=== PATIENT | male | born 1950 | race Caucasian/White ===

== ENCOUNTER 2018-08-04 19:26 | Inpatient (IN) | payer MEDICARE, MEDICAID ==
[~2018-08-04] VITALS: Ht 215.9 cm; Wt 67.1 kg
[~2018-08-04 19:26] MED LIST: ALBUTEROL PO; FLUT1DIS IH; P20 PO; PRO AIR INHALER INH; THEO80EL3 PO; TIOT18CA3 IH
[2018-08-04] MEDS ORDERED: IPRATROPIUM BROMIDE (0.02%) 0.5MG/2.5ML NEB HHN STA (20:10)
[2018-08-04] MEDS ORDERED: METHYLPREDNISOLONE SOD SUCC 125 MG/2 ML VIAL IV STA (20:10)
[2018-08-04] MEDS ORDERED: SODIUM CHLORIDE 0.9% 1,000 ML IV ONE (20:10)
[2018-08-04] MEDS ORDERED: MAGNESIUM 2 G PREMIX 50 ML IV ONE (20:15)
[2018-08-04] MEDS: ALBUTEROL (0.083%) 2.5MG/3ML NEB HHN SCH ×3 (20:30→21:50)
[2018-08-04 20:44] LABS: HEMATOCRIT. 49.8 % (42.0-52.0); HEMOGLOBIN. 16.8 g/dL (14.0-18.0); MEAN CORPUSCULAR HEMOGLOBIN 29.7 pg (28.0-32.0); MEAN CORPUSCULAR VOLUME 88.4 fL (80.0-94.0); MEAN PLATELET VOLUME 7.9 fl (7.4-10.4); PLATELET 312 x1000/uL (130-400); RED BLOOD CELL COUNT 5.64 mill/uL (4.7-6.1)
[2018-08-04 20:47] LABS: CHLORIDE 100 mEq/L (98-107)
[2018-08-04 20:48] LABS: PROTHROMBIN TIME 9.8 sec (9.6-11.0)
[2018-08-04 21:12] LABS: PLATELET ESTIMATE NORMAL
[2018-08-04] MEDS ORDERED: ONDANSETRON HCL 4MG/2ML INJ IV PRN (22:15)
[2018-08-04] MEDS ORDERED: MAGNESIUM HYDROXIDE 400MG/5ML 30ML UDC PO PRN (22:15)
[2018-08-04] MEDS ORDERED: IPRATROPIUM/ALBUTEROL 0.5-3(2.5)MG/3ML NEB INH PRN (22:15)
[2018-08-04] MEDS ORDERED: TEMAZEPAM 15MG CAPSULE PO PRN (22:15)
[2018-08-04] MEDS ORDERED: MVI, ADULT NO.1 10 ML, FOLIC ACID 1 MG, THIAMINE HCL 100 MG in SODIUM CHLORIDE 0.9% 1,0... IV NR ×4 (22:15)
[2018-08-04] MEDS ORDERED: ACETAMINOPHEN 325MG TABLET PO PRN (22:15)
[2018-08-04] MEDS ORDERED: DIPHENHYDRAMINE 50MG/ML VIAL IV PRN (22:15)
[2018-08-04] MEDS ORDERED: LORAZEPAM 0.5MG TABLET PO PRN (22:15)
[2018-08-04] MEDS ORDERED: CLONIDINE 0.1MG TABLET PO PRN (22:15)
[2018-08-04] MEDS ORDERED: MAGNESIUM/ALUMINUM HYDROXIDE/SIMETHICONE 30ML UDC PO PRN (22:15)
[2018-08-04] MEDS ORDERED: GUAIFENESIN 200MG/10ML SUGAR FREE UDC PO PRN (22:15)
[2018-08-05] VITALS (7 sets, daily range): BP systolic 113–136; BP diastolic 57–86
[2018-08-05] MEDS: METHYLPREDNISOLONE SOD SUCC 125 MG/2 ML VIAL IV SCH ×2 (05:27→14:26)
[2018-08-05] MEDS: IPRATROPIUM/ALBUTEROL 0.5-3(2.5)MG/3ML NEB HHN SCH ×3 (08:51→20:41)
[2018-08-05] MEDS ORDERED: FAMOTIDINE 20MG TABLET PO SCH (09:00)
[2018-08-05] MEDS: GUAIFENESIN 600MG ER TABLET PO SCH ×2 (09:15→21:12)
[2018-08-05] MEDS: ENOXAPARIN 40MG/0.4ML SYR SUBCUT SCH (09:16)
[2018-08-05] MEDS: OMEPRAZOLE 20MG CAPSULE EXTENDED RELEASE PO SCH (13:26)
[2018-08-05] MEDS: METHYLPREDNISOLONE SOD SUCC 40 MG/ML VIAL IV SCH (21:12)
[2018-08-06] VITALS: BP 112/62
[2018-08-06] MEDS ORDERED: BUDESONIDE 0.5MG/2ML NEB HHN SCH
[2018-08-06] MEDS: IPRATROPIUM/ALBUTEROL 0.5-3(2.5)MG/3ML NEB HHN SCH ×3 (02:21→14:28)
[2018-08-06 04:00] VITALS: BP 103/64
[2018-08-06] MEDS: OMEPRAZOLE 20MG CAPSULE EXTENDED RELEASE PO SCH (06:01)
[2018-08-06] MEDS: METHYLPREDNISOLONE SOD SUCC 40 MG/ML VIAL IV SCH ×2 (06:04→14:12)
[2018-08-06] MEDS: THEOPHYLLINE ANHYDROUS 80 MG/15 ML 120ML PO SCH ×2 (06:05→12:38)
[2018-08-06 08:18] VITALS: BP 113/62
[2018-08-06] MEDS: ENOXAPARIN 40MG/0.4ML SYR SUBCUT SCH (08:18)
[2018-08-06] MEDS: GUAIFENESIN 600MG ER TABLET PO SCH (08:18)
[2018-08-06 12:00] VITALS: BP 123/64
[2018-08-06 15:05] VITALS: BP 123/64
[2018-08-06 16:00] VITALS: BP 124/58
[2018-08-07] MEDS ORDERED: FAMOTIDINE 20MG TABLET PO SCH (09:00)
== END 2018-08-06 18:04 | disposition home or self-care (01) | DRG 189 ==
LOC: ER 19:26 → 5WST 22:01 → EDBEDREQ 22:04 → EDBEDREQTM 22:04 → ENRESERV 22:45
PROVIDERS: ADMIT Internal Medicine; ATTEND Internal Medicine
DX: J96.00 Acute respiratory failure, unspecified whether with hypoxia or hypercapnia (principal); J44.1 Chronic obstructive pulmonary disease with (acute) exacerbation; K21.9 Gastro-esophageal reflux disease without esophagitis; E87.5 Hyperkalemia; Z99.81 Dependence on supplemental oxygen; Z87.891 Personal history of nicotine dependence; Z91.5 Personal history of self-harm; Z79.899 Other long term (current) drug therapy
CPT/HCPCS: 36415; 71045; 83605; 83880; 84484; 93005; 93970; 94640; 96365; 96375; 99291; J1650; J2920; J2930; J3411; J3475; J3490; J7030; J7611; J7620; J7626

== ENCOUNTER 2018-10-15 10:22 | Inpatient (IN) | payer MEDICAID, MEDICARE ==
[~2018-10-15] VITALS: Ht 172.7 cm; Wt 63.5 kg
[2018-10-15] MEDS ORDERED: METHYLPREDNISOLONE SOD SUCC 125 MG/2 ML VIAL IV STA (10:29)
[2018-10-15] MEDS ORDERED: IPRATROPIUM BROMIDE (0.02%) 0.5MG/2.5ML NEB HHN STA ×2 (10:29)
[2018-10-15 10:47] LABS: BASOPHILS % 0.7 % (0.0-2.0); EOSINOPHILS % 0.3 % (0.0-5.0); HEMATOCRIT. 45.6 % (42.0-52.0); HEMOGLOBIN. 15.5 g/dL (14.0-18.0); LYMPHOCYTES % 12.3 % (20.0-50.0); MEAN CORPUSCULAR HEMOGLOBIN 29.6 pg (28.0-32.0); MEAN CORPUSCULAR VOLUME 87.3 fL (80.0-94.0); MEAN PLATELET VOLUME 8.2 fl (7.4-10.4); MONOCYTES % 7.2 % (2.0-8.0); NEUTROPHILS % 79.5 % (40.0-76.0); PLATELET 291 x1000/uL (130-400); RED BLOOD CELL COUNT 5.23 mill/uL (4.7-6.1); RED CELL DISTRIBUTION WIDTH 16.1 % (11.6-14.6)
[2018-10-15 10:54] LABS: CHLORIDE 97 mEq/L (98-107)
[2018-10-15 10:55] LABS: PROTHROMBIN TIME 10.5 sec (9.6-11.0)
[2018-10-15] MEDS ORDERED: FUROSEMIDE 20MG/2ML VIAL IVP ONE (11:15)
[2018-10-15 11:27] LABS: BG BASE EXCESS 3.3 mmol/L (-2.0-2.0); BG BILEVEL POS AIRWAY PRESSURE 15/5; BG CARBOXYHEMOGLOBIN 0.5 % (0.5-1.5); BG DEOXYHEMOGLOBIN 0.3 % (0.0-5.0); BG FRACTION INSPIRED OXYGEN 100; BG HCO3 ACT 27.7 mmol/L (22.0-26.0); BG METHEMOGLOBIN 0.4 % (0.0-1.5); BG OXYGEN SATURATION 99.7 % (92.0-98.5); BG OXYHEMOGLOBIN 98.8 % (94.0-97.0); BG PCO2 41.5 mmHg (35.0-45.0); BG PH 7.443 (7.350-7.450); BG PO2 565.8 mmHg (75.0-100.0); BG SAMPLE SITE RIGHT RADIAL; BG TOTAL HEMOGLOBIN 15.1 g/dL (12.0-18.0); BG VENT MODE MASK - BIPAP; BG VENT RATE 16 set
[2018-10-15] MEDS ORDERED: LEVOFLOXACIN 500MG PREMIX 100 ML IV ONE (11:30)
[2018-10-15 11:54] LABS: CLARITY URINE CLOUDY (CLEAR); COLOR URINE YELLOW (YELLOW); KETONES URINE 1+ (NEGATIVE); LEUKOCYTE ESTERASE URINE TRACE (NEGATIVE); NITRITE URINE NEGATIVE (NEGATIVE); OCCULT BLOOD URINE TRACE (NEGATIVE); PROTEIN URINE 1+ (NEGATIVE); UROBILINOGEN URINE 0.2 E.U./dL (0.2-1.0)
[2018-10-15] MEDS ORDERED: LORAZEPAM 2MG/ML CPJ IV PRN (12:15)
[2018-10-15] MEDS ORDERED: ONDANSETRON HCL 4MG/2ML INJ IV PRN (12:15)
[2018-10-15] MEDS ORDERED: HYDROCODONE/ACETAMINOPHEN 5/325MG TABLET PO PRN (12:15)
[2018-10-15] MEDS ORDERED: PIPERACILLIN/TAZ 3.375G PREMIX 50 ML IV SCH (12:15)
[2018-10-15] MEDS ORDERED: CLONIDINE 0.1MG TABLET PO PRN (12:15)
[2018-10-15] MEDS ORDERED: HYDROMORPHONE HCL/PF 2MG/ML CPJ IV PRN (12:15)
[2018-10-15] MEDS ORDERED: MAGNESIUM/ALUMINUM HYDROXIDE/SIMETHICONE 30ML UDC PO PRN (12:15)
[2018-10-15 13:30] LABS: CHLORIDE 97 mEq/L (98-107)
[2018-10-15] MEDS: POTASSIUM CHLORIDE 20MEQ TABLET SR PO SCH ×2 (14:45→16:26)
[2018-10-15 16:00] VITALS: BP_SYST 127; BP_SYST 130; BP_DIAS 76; BP_DIAS 89
[2018-10-15] MEDS ORDERED: NA PHOS,M-B/NA PHOS,DI-BA ENEMA 118ML PR PRN (16:00)
[2018-10-15] MEDS: PANTOPRAZOLE SODIUM 40 MG/VIAL IV SCH (16:26)
[2018-10-15] MEDS: ENOXAPARIN 40MG/0.4ML SYR SUBCUT SCH (16:27)
[2018-10-15 17:02] VITALS: BP 131/32
[2018-10-15 18:00] VITALS: BP 153/88
[2018-10-15] MEDS: PIPERACILLIN/TAZOBACTAM 3.375 G in DEXT 5% WATER 100 ML IV SCH (18:00)
[2018-10-15] MEDS: METHYLPREDNISOLONE SOD SUCC 125 MG/2 ML VIAL IV SCH (18:00)
[2018-10-15 20:00] VITALS: BP 148/96
[2018-10-15] MEDS: DILTIAZEM HCL 30MG TABLET PO SCH (21:25)
[2018-10-15 22:00] VITALS: BP 142/96
[2018-10-15] MEDS: HALOPERIDOL LACTATE 5MG/ML VIAL IM PRN (22:25)
[2018-10-16] VITALS (11 sets, daily range): BP systolic 105–182; BP diastolic 18–109
[2018-10-16] MEDS: METHYLPREDNISOLONE SOD SUCC 125 MG/2 ML VIAL IV SCH ×3 (05:37→11:12)
[2018-10-16] MEDS: PIPERACILLIN/TAZOBACTAM 3.375 G in DEXT 5% WATER 100 ML IV SCH ×5 (05:37→17:46)
[2018-10-16] MEDS: DILTIAZEM HCL 30MG TABLET PO SCH ×3 (05:37→22:00)
[2018-10-16] MEDS: PANTOPRAZOLE SODIUM 40 MG/VIAL IV SCH (09:00)
[2018-10-16] MEDS: FUROSEMIDE 40MG/4ML VIAL IV SCH (09:00)
[2018-10-16] MEDS: ASPIRIN 81MG EC TABLET PO SCH (09:00)
[2018-10-16] MEDS: HALOPERIDOL LACTATE 5MG/ML VIAL IM PRN ×2 (15:32→22:37)
[2018-10-16] MEDS: METHYLPREDNISOLONE SOD SUCC 40 MG/ML VIAL IV SCH (16:00)
[2018-10-16] MEDS: ENOXAPARIN 40MG/0.4ML SYR SUBCUT SCH (16:30)
[2018-10-16] MEDS: QUETIAPINE FUMARATE 25MG TABLET PO SCH (21:00)
[2018-10-17] VITALS (12 sets, daily range): BP systolic 101–168; BP diastolic 50–90
[2018-10-17] MEDS: PIPERACILLIN/TAZOBACTAM 3.375 G in DEXT 5% WATER 100 ML IV SCH ×6 (05:40→23:14)
[2018-10-17] MEDS: DILTIAZEM HCL 30MG TABLET PO SCH ×3 (05:45→21:41)
[2018-10-17 06:54] LABS: HEMATOCRIT. 43.9 % (42.0-52.0); HEMOGLOBIN. 14.4 g/dL (14.0-18.0); MEAN PLATELET VOLUME 8.5 fl (7.4-10.4); PLATELET 199 x1000/uL (130-400); RED BLOOD CELL COUNT 4.99 mill/uL (4.7-6.1); RED CELL DISTRIBUTION WIDTH 16.2 % (11.6-14.6)
[2018-10-17 07:16] LABS: CHLORIDE 100 mEq/L (98-107)
[2018-10-17] MEDS: METHYLPREDNISOLONE SOD SUCC 40 MG/ML VIAL IV SCH ×3 (08:12→21:13)
[2018-10-17] MEDS: FUROSEMIDE 40MG/4ML VIAL IV SCH (08:12)
[2018-10-17] MEDS: MORPHINE SULFATE 2 MG/ML CPJ (NOT FOR IM USE) IV PRN ×2 (08:12→21:13)
[2018-10-17] MEDS: PANTOPRAZOLE SODIUM 40 MG/VIAL IV SCH (08:12)
[2018-10-17] MEDS: ASPIRIN 81MG EC TABLET PO SCH (08:13)
[2018-10-17] MEDS: QUETIAPINE FUMARATE 25MG TABLET PO SCH ×2 (08:13→21:14)
[2018-10-17] MEDS ORDERED: METHYLPREDNISOLONE SOD SUCC 40 MG/ML VIAL IV SCH (13:00)
[2018-10-17 14:05] LABS: PLATELET ESTIMATE NORMAL
[2018-10-17] MEDS: ENOXAPARIN 40MG/0.4ML SYR SUBCUT SCH (17:19)
[2018-10-18] VITALS (12 sets, daily range): BP systolic 108–135; BP diastolic 56–74
[2018-10-18] MEDS: PIPERACILLIN/TAZOBACTAM 3.375 G in DEXT 5% WATER 100 ML IV SCH ×4 (05:27→23:33)
[2018-10-18] MEDS: DILTIAZEM HCL 30MG TABLET PO SCH ×3 (05:32→21:15)
[2018-10-18 06:48] LABS: HEMATOCRIT. 43.1 % (42.0-52.0); HEMOGLOBIN. 14.8 g/dL (14.0-18.0); MEAN CORPUSCULAR HEMOGLOBIN 29.9 pg (28.0-32.0); MEAN CORPUSCULAR VOLUME 86.7 fL (80.0-94.0); MEAN PLATELET VOLUME 8.3 fl (7.4-10.4); PLATELET 203 x1000/uL (130-400); RED BLOOD CELL COUNT 4.96 mill/uL (4.7-6.1); RED CELL DISTRIBUTION WIDTH 16.4 % (11.6-14.6)
[2018-10-18 06:56] LABS: CHLORIDE 96 mEq/L (98-107)
[2018-10-18] MEDS: METHYLPREDNISOLONE SOD SUCC 40 MG/ML VIAL IV SCH (08:32)
[2018-10-18] MEDS: QUETIAPINE FUMARATE 25MG TABLET PO SCH ×2 (08:33→21:14)
[2018-10-18] MEDS: FAMOTIDINE 20MG/2ML VIAL IV SCH ×2 (08:33→21:14)
[2018-10-18] MEDS: ASPIRIN 81MG EC TABLET PO SCH (08:33)
[2018-10-18] MEDS ORDERED: POTASSIUM CHLORIDE 20MEQ/PACKET PO NR (09:15)
[2018-10-18] MEDS: ACETAMINOPHEN 325MG TABLET PO PRN (15:55)
[2018-10-18] MEDS: ENOXAPARIN 40MG/0.4ML SYR SUBCUT SCH (15:57)
[2018-10-18] MEDS: IPRATROPIUM/ALBUTEROL 0.5-3(2.5)MG/3ML NEB NEB PRN (18:01)
[2018-10-18 21:09] LABS: PLATELET ESTIMATE NORMAL
[2018-10-18] MEDS: MORPHINE SULFATE 2 MG/ML CPJ (NOT FOR IM USE) IV PRN (21:16)
[2018-10-19] VITALS (12 sets, daily range): BP systolic 113–144; BP diastolic 51–85
[2018-10-19] MEDS: IPRATROPIUM/ALBUTEROL 0.5-3(2.5)MG/3ML NEB NEB PRN (00:19)
[2018-10-19] MEDS: PIPERACILLIN/TAZOBACTAM 3.375 G in DEXT 5% WATER 100 ML IV SCH ×3 (05:23→17:40)
[2018-10-19] MEDS: DILTIAZEM HCL 30MG TABLET PO SCH ×3 (05:25→21:09)
[2018-10-19] MEDS: MORPHINE SULFATE 2 MG/ML CPJ (NOT FOR IM USE) IV PRN (05:26)
[2018-10-19] MEDS: FAMOTIDINE 20MG/2ML VIAL IV SCH ×2 (09:14→21:08)
[2018-10-19] MEDS: PREDNISONE 20MG TABLET PO SCH (09:14)
[2018-10-19] MEDS: QUETIAPINE FUMARATE 25MG TABLET PO SCH ×2 (09:14→21:09)
[2018-10-19] MEDS: ASPIRIN 81MG EC TABLET PO SCH (09:14)
[2018-10-19 13:14] LABS: CHLORIDE 95 mEq/L (98-107)
[2018-10-19] MEDS: ENOXAPARIN 40MG/0.4ML SYR SUBCUT SCH (16:28)
[2018-10-20] VITALS (12 sets, daily range): BP systolic 63–136; BP diastolic 21–85
[2018-10-20] MEDS: PIPERACILLIN/TAZOBACTAM 3.375 G in DEXT 5% WATER 100 ML IV SCH ×5 (00:32→23:33)
[2018-10-20] MEDS: DILTIAZEM HCL 30MG TABLET PO SCH ×3 (06:18→21:47)
[2018-10-20 07:34] LABS: HEMATOCRIT. 43.6 % (42.0-52.0); HEMOGLOBIN. 14.9 g/dL (14.0-18.0); MEAN CORPUSCULAR HEMOGLOBIN 29.7 pg (28.0-32.0); MEAN CORPUSCULAR VOLUME 86.6 fL (80.0-94.0); MEAN PLATELET VOLUME 8.3 fl (7.4-10.4); PLATELET 190 x1000/uL (130-400); RED BLOOD CELL COUNT 5.04 mill/uL (4.7-6.1); RED CELL DISTRIBUTION WIDTH 15.6 % (11.6-14.6)
[2018-10-20 07:45] LABS: CHLORIDE 93 mEq/L (98-107)
[2018-10-20] MEDS: PREDNISONE 20MG TABLET PO SCH (08:34)
[2018-10-20] MEDS: FAMOTIDINE 20MG/2ML VIAL IV SCH ×2 (08:34→21:47)
[2018-10-20] MEDS: ASPIRIN 81MG EC TABLET PO SCH (08:34)
[2018-10-20] MEDS: QUETIAPINE FUMARATE 25MG TABLET PO SCH ×2 (08:34→21:47)
[2018-10-20] MEDS: ENOXAPARIN 40MG/0.4ML SYR SUBCUT SCH (17:43)
[2018-10-20 18:43] LABS: PLATELET ESTIMATE NORMAL
[2018-10-20] MEDS: GUAIFENESIN 200MG/10ML SUGAR FREE UDC PO PRN (19:57)
[2018-10-21] VITALS (12 sets, daily range): BP systolic 114–146; BP diastolic 55–79
[2018-10-21] MEDS: ACETAMINOPHEN 325MG TABLET PO PRN (02:33)
[2018-10-21] MEDS: DOCUSATE SODIUM 100MG CAPSULE PO PRN ×2 (05:24→08:30)
[2018-10-21] MEDS: PIPERACILLIN/TAZOBACTAM 3.375 G in DEXT 5% WATER 100 ML IV SCH ×3 (05:24→17:26)
[2018-10-21] MEDS: DILTIAZEM HCL 30MG TABLET PO SCH ×3 (05:26→20:58)
[2018-10-21] MEDS: ASPIRIN 81MG EC TABLET PO SCH (08:29)
[2018-10-21] MEDS: QUETIAPINE FUMARATE 25MG TABLET PO SCH ×2 (08:29→20:56)
[2018-10-21] MEDS: FAMOTIDINE 20MG/2ML VIAL IV SCH ×2 (08:29→20:56)
[2018-10-21] MEDS: PREDNISONE 20MG TABLET PO SCH (08:29)
[2018-10-21] MEDS: IPRATROPIUM/ALBUTEROL 0.5-3(2.5)MG/3ML NEB NEB PRN (09:38)
[2018-10-21] MEDS: GUAIFENESIN 200MG/10ML SUGAR FREE UDC PO PRN ×2 (12:55→19:19)
[2018-10-21] MEDS ORDERED: LACTULOSE 20G/30ML UDC PO NR (15:15)
[2018-10-21] MEDS: ENOXAPARIN 40MG/0.4ML SYR SUBCUT SCH (17:27)
[2018-10-22] VITALS (11 sets, daily range): BP systolic 98–150; BP diastolic 65–89
[2018-10-22] MEDS: PIPERACILLIN/TAZOBACTAM 3.375 G in DEXT 5% WATER 100 ML IV SCH ×4 (00:37→17:17)
[2018-10-22] MEDS: ACETAMINOPHEN 325MG TABLET PO PRN (04:07)
[2018-10-22] MEDS: DILTIAZEM HCL 30MG TABLET PO SCH ×2 (05:52→13:26)
[2018-10-22] MEDS ORDERED: PREDNISONE 20MG TABLET PO SCH (08:00)
[2018-10-22] MEDS: FAMOTIDINE 20MG/2ML VIAL IV SCH (08:37)
[2018-10-22] MEDS: ASPIRIN 81MG EC TABLET PO SCH (08:37)
[2018-10-22] MEDS: QUETIAPINE FUMARATE 25MG TABLET PO SCH (08:37)
[2018-10-22] MEDS: PHENOL/SODIUM PHENOLATE 1.4% SRPAY 177ML MM PRN ×2 (11:24→17:21)
[2018-10-22] MEDS: ENOXAPARIN 40MG/0.4ML SYR SUBCUT SCH (17:17)
== END 2018-10-22 20:04 | disposition hospice, home (50) | DRG 871 ==
LOC: ER 10:22 → EDBEDREQ 10:41 → 5EST 11:17 → EDBEDREQTM 11:19 → EDBEDREQ 11:19 → EDBEDREQSVC 11:19 → ENRESERV 13:31 → 5EST 10-16 21:39
PROVIDERS: ADMIT Internal Medicine; ATTEND Internal Medicine
DX: A41.9 Sepsis, unspecified organism (principal); J96.00 Acute respiratory failure, unspecified whether with hypoxia or hypercapnia; J69.0 Pneumonitis due to inhalation of food and vomit; G93.41 Metabolic encephalopathy; I50.43 Acute on chronic combined systolic (congestive) and diastolic (congestive) heart failure; N39.0 Urinary tract infection, site not specified; J44.1 Chronic obstructive pulmonary disease with (acute) exacerbation; E46 Unspecified protein-calorie malnutrition; E87.1 Hypo-osmolality and hyponatremia; I47.1 Supraventricular tachycardia; E87.6 Hypokalemia; D64.9 Anemia, unspecified; K21.9 Gastro-esophageal reflux disease without esophagitis; I11.0 Hypertensive heart disease with heart failure; I25.10 Atherosclerotic heart disease of native coronary artery without angina pectoris; I49.3 Ventricular premature depolarization; K59.00 Constipation, unspecified; Z51.5 Encounter for palliative care; Z66 Do not resuscitate; Z99.81 Dependence on supplemental oxygen; Z79.899 Other long term (current) drug therapy
CPT/HCPCS: 36415; 36600; 71045; 80048; 80198; 81003; 82375; 82805; 83605; 83735; 83880; 84145; 84484; 85379; 86850; 86900; 93005; 93308; 94640; 94660; 97162; 97166; 99291; C1893; C9113; J1630; J1650; J1940; J1956; J2270; J2543; J2920; J2930; J3490; J7040; J7060; J7512; J7620